=== PATIENT | female | born 1975 | race Caucasian/White ===

== ENCOUNTER → 2019-02-11 | Outpatient (REF) | payer OTHER ==
[~2019-02-11] MED LIST: ACYC400T PO; ASPI-255 PO; BUPR15TA PO; CETI10TA PO; PERC5TAB12 PO
== END ==
LOC: M LAB LCGH 11:21
DX: Z12.4 Encounter for screening for malignant neoplasm of cervix (principal)

== ENCOUNTER → 2025-02-04 | Outpatient (CLI) | payer OTHER ==
[~2025-02-04] MED LIST changes: +ACYC-438 PO; -ACYC400T PO
== END ==
LOC: M SLEEP HO 14:59
PROVIDERS: ATTEND Internal Medicine
DX: G47.33 Obstructive sleep apnea (adult) (pediatric) (principal); R06.83 Snoring

== ENCOUNTER → 2025-03-08 | Outpatient (REF) | payer OTHER | LOC: M SFHCLERA 17:12 | PROVIDERS: ATTEND Student in an Organized Health Care Education/Training Program | DX: R30.0 Dysuria (principal) ==